=== PATIENT | female | born 1985 | race Caucasian/White ===

== ENCOUNTER 2017-04-24 18:07 | Emergency (ER) | payer OTHER ==
[~2017-04-24] VITALS: Ht 157.4 cm; Wt 53.5 kg
[~2017-04-24 18:07] MED LIST: AMOXIL500 MG PO; ANAPROX DS550 MG PO; BACTRIM DS 8001 TA1 PO; FLEXERIL10 MG PO; FLEXERIL5 MG PO; HYDROCODONE BIT1 T11 PO; IBU-8800 MG PO; IBUPROFEN 30 M800 MG; LIDEX0.05% T; MACROBID100 M1 PO; MEDROL DOSEPAK4 MG PO; MOTRIN800 MG PO; NAPROSYN500 MG PO; PREVACID30 MG; PYRIDIUM200 MG PO; SMZ TMP DS; URISTAT95 MG PO; VITAMIN B COMPL1 CAP PO; VITAMIN D400 I1 PO; ZOLOFT25 MG; ZOLOFT25 MG PO
[2017-04-24 18:16] VITALS: BP 119/77
[2017-04-24 18:34] LABS: BASO % 0.3 % (0.0-1.0); EOS % 0.6 % (1.0-4.0); HEMATOCRIT 36.2 % (37.0-47.0); HEMOGLOBIN 12.8 g/dl (12.0-16.0); LYMPH # 2.2 10*3/uL (1.3-4.4); LYMPH % 35.3 % (27.0-41.0); MEAN CELL VOLUME 88.7 fl (81.0-99.0); MEAN CORPUSCULAR HGB 31.4 pg (27.0-31.0); MEAN CORPUSCULAR HGB CONC 35.4 g/dl (33.0-37.0); MEAN PLATELET VOLUME 8.6 fl (9.6-12.3); MONO # 0.3 10*3/uL (0.1-1.0); MONO % 4.7 % (3.0-9.0); NEUT # 3.7 10*3/uL (2.3-7.9); NEUT % 58.9 % (47.0-73.0); PLATELET COUNT AUTOMATED 247 10*3/uL (130-400); RED BLOOD COUNT 4.08 10*6/uL (4.10-5.10); RED CELL DISTRI WIDTH 11.9 % (0-14.5); WHITE BLOOD COUNT 6.3 10*3/uL (4.8-10.8)
[2017-04-24 18:51] LABS: ALBUMIN 3.8 gm/dl (3.1-4.5); ALKALINE PHOSPHATASE 52 U/L (45-117); BUN 10 mg/dl (7-24); CHLORIDE 105 mmol/L (98-107); CREATININE 0.62 mg/dL (0.55-1.02); SGOT/AST 14 IU/L (3-35); SGPT/ALT 20 U/L (12-78); SODIUM 138 mmol/L (136-145); TOTAL PROTEIN 7.4 gm/dL (6.4-8.2)
[2017-04-24 18:55] LABS: TROPONIN I < 0.015 ng/ml (<0.045)
== END 2017-04-24 21:29 | disposition home or self-care (01) ==
LOC: ED 18:07
PROVIDERS: Nurse Practitioner Family
DX: R07.89 Other chest pain (principal); R51 Headache; E87.6 Hypokalemia; Z79.899 Other long term (current) drug therapy

== ENCOUNTER → 2017-07-04 | Outpatient (CLI) | payer OTHER | END | disposition home or self-care (01) | LOC: RAD 09:21 | DX: S39.012A Strain of muscle, fascia and tendon of lower back, initial encounter (principal); X58.XXXA Exposure to other specified factors, initial encounter; Y93.89 Activity, other specified; Y92.89 Other specified places as the place of occurrence of the external cause; Y99.8 Other external cause status ==

== ENCOUNTER → 2018-01-18 | Outpatient (CLI) | payer OTHER | LOC: US 08:30 | DX: R10.2 Pelvic and perineal pain (principal); R10.11 Right upper quadrant pain ==

== ENCOUNTER → 2018-05-24 | Outpatient (CLI) | payer OTHER | END | disposition home or self-care (01) | LOC: RAD 18:21 | DX: S16.1XXA Strain of muscle, fascia and tendon at neck level, initial encounter (principal); M54.2 Cervicalgia; R51 Headache; X58.XXXA Exposure to other specified factors, initial encounter; Y93.89 Activity, other specified; Y92.89 Other specified places as the place of occurrence of the external cause; Y99.8 Other external cause status ==

== ENCOUNTER → 2018-11-07 | Outpatient (CLI) | payer OTHER ==
[~2018-11-07] MED LIST changes: +CETIRIZINE HYDR10 MG PO; +CYCLOBENZAPRINE5 M3 PO; +METHOCARBAMOL500 M1 PO
== END | disposition home or self-care (01) ==
LOC: RAD 14:05
DX: M54.16 Radiculopathy, lumbar region (principal); R20.0 Anesthesia of skin

== ENCOUNTER → 2020-09-10 | Outpatient (CLI) | payer OTHER | END | disposition home or self-care (01) | LOC: RAD 18:50 | PROVIDERS: ATTEND Nurse Practitioner Family | DX: M47.817 Spondylosis without myelopathy or radiculopathy, lumbosacral region (principal); M54.42 Lumbago with sciatica, left side ==

== ENCOUNTER → 2022-01-14 | Outpatient (CLI) | payer OTHER | END | disposition home or self-care (01) | LOC: RAD 09:54 | PROVIDERS: ATTEND Nurse Practitioner Family | DX: M79.642 Pain in left hand (principal) ==

== ENCOUNTER → 2022-07-07 | Day surgery (SDC) | payer OTHER ==
[2022-07-03 14:21] VITALS: BP 102/67
[2022-07-07] VITALS (8 sets, daily range): BP systolic 90–115; BP diastolic 56–76
[~2022-07-07] VITALS: Ht 157.4 cm; Wt 53.1 kg
[~2022-07-07] MED LIST changes: +BUSPAR5 MG PO; +PREVACID30 M2 PO; +Percocet 325 MG1 TAB PO; +XANAX0.25 MG PO
== END | disposition home or self-care (01) ==
LOC: SDC 07-03 12:30
PROVIDERS: ATTEND Obstetrics & Gynecology
DX: Z30.2 Encounter for sterilization (principal); N83.8 Other noninflammatory disorders of ovary, fallopian tube and broad ligament; K21.9 Gastro-esophageal reflux disease without esophagitis; F41.9 Anxiety disorder, unspecified; G43.909 Migraine, unspecified, not intractable, without status migrainosus; Z79.899 Other long term (current) drug therapy

== ENCOUNTER 2023-05-02 20:22 | Emergency (ER) | payer OTHER ==
[~2023-05-02] VITALS: Ht 157.4 cm; Wt 52.6 kg
[2023-05-02 20:46] VITALS: BP 108/57
[2023-05-02 21:06] LABS: BASO # 0.1 10*3/uL (0.0-0.1); BASO % 0.7 % (0.0-1.0); EOS # 0.1 10*3/uL (0.0-0.4); EOS % 1.5 % (1.0-4.0); HEMATOCRIT 40.4 % (37.0-47.0); LYMPH # 2.6 10*3/uL (1.3-4.4); LYMPH % 36.5 % (27.0-41.0); MEAN CELL VOLUME 90.6 fl (81.0-99.0); MEAN CORPUSCULAR HGB 32.1 pg (27.0-31.0); MEAN CORPUSCULAR HGB CONC 35.4 g/dl (33.0-37.0); MEAN PLATELET VOLUME 8.3 fl (9.6-12.3); MONO # 0.5 10*3/uL (0.1-1.0); MONO % 7.2 % (3.0-9.0); NEUT # 3.9 10*3/uL (2.3-7.9); PLATELET COUNT AUTOMATED 286 10*3/uL (130-400); RED BLOOD COUNT 4.46 10*6/uL (4.10-5.10); WHITE BLOOD COUNT 7.2 10*3/uL (4.8-10.8)
[2023-05-02 21:18] LABS: BILIRUBIN Negative (Negative); BLOOD Negative (Negative); CLARITY Clear (Clear); COLOR Yellow (Yellow); GLUCOSE Negative (Negative); KETONE Negative (Negative); LEUKO ESTERASE 1+ (Negative); NITRITE Negative (Negative); PH 5.5 (4.5-8.0)
[2023-05-02 21:26] LABS: ALKALINE PHOSPHATASE 71 U/L (46-116); BUN 10 mg/dl (9-23); CHLORIDE 106 mmol/L (98-107); LIPASE 33 U/L (12-53); POTASSIUM 3.5 mmol/L (3.4-5.1); SGPT/ALT 8 U/L (10-49)
[2023-05-02 21:46] LABS: BACTERIA 1+
[2023-05-02] MEDS ORDERED: CIPRO500 MG PO (22:10)
== END 2023-05-02 22:16 | disposition home or self-care (01) ==
LOC: ED 20:22
PROVIDERS: Nurse Practitioner
DX: N39.0 Urinary tract infection, site not specified (principal); R19.7 Diarrhea, unspecified; K21.9 Gastro-esophageal reflux disease without esophagitis; F41.9 Anxiety disorder, unspecified; G43.909 Migraine, unspecified, not intractable, without status migrainosus; Z88.1 Allergy status to other antibiotic agents

== ENCOUNTER 2023-09-23 19:33 | Emergency (ER) | payer OTHER ==
[~2023-09-23] VITALS: Ht 162.5 cm; Wt 54.0 kg
[~2023-09-23 19:33] MED LIST changes: +CIPRO500 MG PO
[2023-09-23 19:48] VITALS: BP 114/76
[2023-09-23] MEDS ORDERED: CEFDINIR 300 MG CAP PO ONE (20:00)
[2023-09-23] MEDS ORDERED: CEFDINIR300 MG PO (20:20)
== END 2023-09-23 20:40 | disposition home or self-care (01) ==
LOC: ED 19:33
DX: H66.91 Otitis media, unspecified, right ear (principal); R42 Dizziness and giddiness; K21.9 Gastro-esophageal reflux disease without esophagitis; F41.9 Anxiety disorder, unspecified; G43.909 Migraine, unspecified, not intractable, without status migrainosus; Z88.0 Allergy status to penicillin; Z88.1 Allergy status to other antibiotic agents

== ENCOUNTER 2024-02-08 22:15 | Emergency (ER) | payer OTHER ==
[~2024-02-08] VITALS: Ht 157.4 cm; Wt 51.3 kg
[~2024-02-08 22:15] MED LIST changes: +CEFDINIR300 MG PO
[2024-02-08] MEDS ORDERED: GOOD NEIGHBOR L10 MG PO (22:23)
[2024-02-08 22:27] VITALS: BP 108/64
== END 2024-02-08 23:22 | disposition home or self-care (01) ==
LOC: ED 22:15
DX: S60.222A Contusion of left hand, initial encounter (principal); K21.9 Gastro-esophageal reflux disease without esophagitis; F41.9 Anxiety disorder, unspecified; G43.909 Migraine, unspecified, not intractable, without status migrainosus; Z88.0 Allergy status to penicillin; Z88.1 Allergy status to other antibiotic agents; W22.8XXA Striking against or struck by other objects, initial encounter; Y93.89 Activity, other specified; Y92.009 Unspecified place in unspecified non-institutional (private) residence as the place of occurrence of the external cause; Y99.8 Other external cause status

== ENCOUNTER 2024-12-03 18:44 | Emergency (ER) | payer BC ==
[~2024-12-03] VITALS: Ht 157.4 cm; Wt 54.9 kg
[~2024-12-03 18:44] MED LIST changes: +GOOD NEIGHBOR L10 MG PO
[2024-12-03 18:52] VITALS: BP 110/63
[2024-12-03] MEDS ORDERED: VIBRAMYCIN100 MG PO (19:06)
[2024-12-03] MEDS ORDERED: Doxycycline Hyclate 100 MG CAPSULE PO ONE (19:10)
== END 2024-12-03 19:11 | disposition home or self-care (01) ==
LOC: ED 18:44
DX: S30.861A Insect bite (nonvenomous) of abdominal wall, initial encounter (principal); Z88.1 Allergy status to other antibiotic agents; Z79.899 Other long term (current) drug therapy; W57.XXXA Bitten or stung by nonvenomous insect and other nonvenomous arthropods, initial encounter; Y93.89 Activity, other specified; Y92.89 Other specified places as the place of occurrence of the external cause; Y99.8 Other external cause status